=== PATIENT | female | born 1975 | race American Indian/Alaskan Native ===

== ENCOUNTER 2016-09-18 10:27 | Emergency (ER) | payer MEDICARE ==
[2016-09-18] MEDS ORDERED: PROVENTIL IH ONE (11:00)
[2016-09-18] MEDS ORDERED: NORCO 5/325 PO ONE (11:24)
--- NOTE | 2016-09-18 11:31 | Emergency Department Report ---
HPI - General Chief Complaint: Dyspnea/Respdistress Time Seen by Provider: 09/18/16 11:16 - HPI HPI: Room 23 The patient is a 40-year-old female presenting with a chief complaint cough and congestion. Patient states for 4 weeks she has had a cough productive of yellow sputum. Patient admits to wheezing and chest congestion. Patient is to nausea vomiting. Past 4 days. The patient states she "hurts all over" because of her "lupus is flaring up." Patient denies fever, rhinorrhea or sick contacts. Patient now complains of pleurisy. Location: [see above] Duration: 4 days Quality:, Congestion and soreness Severity: Moderate Modifying factors: [see above] Context: [see above] Mode of transportation: [not driving] ED Past Medical Hx - Past Medical History Hx Hypertension: Yes Hx Arthritis: Yes Hx Headaches / Migraines: Yes Hx Psychiatric Treatment: Yes (depression) Hx Asthma: Yes Additional medical history: Sarcodosis, chronic pain management, H. yplori, LUPUS. PNEUMONIA - Surgical History Hx Cholecystectomy: Yes Additional Surgical History: Port placement - Family History Family history: no significant - Social History Smoking Status: Never Smoker Substance Use Type: None - Medications Home Medications: Home Medications Medication Instructions Recorded Confirmed Last Taken Type Lisinopril [Zestril TAB] 20 mg PO QDAY 06/27/15 09/18/16 1 Day Ago History 20 Pravastatin Sodium 40 mg PO QDAY 06/28/15 09/18/16 1 Day Ago History 20 Albuterol Sulfate [Albuterol 0.63% 0.63 mg IH TID PRN #25 unit 10/06/1504/07/16 Rx NEBS] Fluticasone/Salmeterol [Advair 1 puff IH BID #1 blst.w.dev 01/13/16 09/18/16 Rx Diskus 250-50 mcg] Levalbuterol HCl [Xopenex] 0.63 mg IH Q6H PRN #30 vial.neb 01/13/16 09/18/16 Unknown Rx Famotidine [Pepcid] 20 mg PO BID #10 tablet 02/27/16 09/18/16 Unknown Rx ALBUTEROL Inhaler [ProAir HFA 2 puff IH QID PRN #1 inhalation 03/23/16 09/18/16 04/08/16 Rx Inhaler] Prednisone [predniSONE 10 mg 10 mg PO .TAPER #1 tab.ds.pk 03/23/16 09/18/16 Rx (6-Day Pack, 21 Tabs)] Promethazine [Phenergan TAB] 50 mg PO 4XD 04/08/16 09/18/16 Unknown History diphenhydrAMINE [Benadryl CAP] 50 mg PO TID 04/08/16 09/18/16 Unknown History Promethazine [Phenergan] 25 mg [place] Q6HR PRN #5 supp.rect 05/19/16 09/18/16 Unknown Rx predniSONE [Deltasone] 40 mg PO QDAY #14 tab 05/19/16 09/18/16 Unknown Rx ED Review of Systems ROS: Stated complaint: ASTHMA/AUBREE/WHEEZING/CHEST PAIN Other details as noted in HPI Comment: All other systems reviewed and negative Constitutional: denies: fever Eyes: denies: eye pain, eye discharge, vision change ENT: congestion Respiratory: cough, wheezing Cardiovascular: denies: palpitations Endocrine: no symptoms reported Gastrointestinal: nausea, vomiting Genitourinary: denies: urgency, dysuria, discharge Musculoskeletal: myalgia Skin: denies: rash, lesions Neurological: headache Psychiatric: denies: anxiety, depression Hematological/Lymphatic: denies: easy bleeding, easy bruising Physical Exam - Physical Exam Vital Signs: Vital Signs 09/18/16 09/18/16 09/18/16 10:43 11:08 11:23 Temperature 97.7 F Pulse Rate 99 H Pulse Rate [ 90 92 H Bilateral Upper Lobe] Respiratory 24 Rate Respiratory 20 18 Rate [Bilateral Upper Lobe] O2 Sat by Pulse 94 Oximetry Physical Exam: GENERAL: The patient is well-developed well-nourished female lying on stretcher not appearing to be in acute distress. [] HEENT: Normocephalic. Atraumatic. Extraocular motions are intact. NECK: Supple. No meningitic signs are noted. Trachea Midline CHEST/LUNGS: Clear to auscultation. There is no respiratory distress noted. Occasional cough HEART/CARDIOVASCULAR: Regular. There is no tachycardia. There is no gallop rub or murmur. ABDOMEN: Abdomen is soft, nontender. Patient has normal bowel sounds. There is no abdominal distention. SKIN: There is no rash. There is no edema. There is no diaphoresis. NEURO: The patient is awake, alert, and oriented. The patient is cooperative. The patient has normal speech MUSCULOSKELETAL: There is no evidence of acute injury. ED Course Vital Signs 09/18/16 09/18/16 09/18/16 10:43 11:08 11:23 Temperature 97.7 F Pulse Rate 99 H Pulse Rate [ 90 92 H Bilateral Upper Lobe] Respiratory 24 Rate Respiratory 20 18 Rate [Bilateral Upper Lobe] O2 Sat by Pulse 94 Oximetry ED Medical Decision Making - Lab Data Influenza negative - Differential Diagnosis pneumonia, bronchitis, PE, ACS, influenza Critical care attestation.: If time is entered above; I have spent that time in minutes in the direct care of this critically ill patient, excluding procedure time. ED Disposition Clinical Impression: Cough, Lupus, Pleurisy Disposition: DISCHARGED TO HOME OR SELFCARE Is pt being admited?: No Does the pt Need Aspirin: No Condition: Undetermined Referrals: PRIMARY CARE, [Primary Care Provider] - 3-5 Days Forms: AMA Form
[2016-09-18] MEDS ORDERED: ZOFRAN ODT ONE (11:33)
[2016-09-18 13:00] VITALS: BP 121/78
== END 2016-09-18 12:30 | disposition home or self-care (01) ==
LOC: ED 10:27
DX: R09.1 Pleurisy (principal); M32.9 Systemic lupus erythematosus, unspecified; I10 Essential (primary) hypertension; M19.90 Unspecified osteoarthritis, unspecified site; G43.909 Migraine, unspecified, not intractable, without status migrainosus; F32.9 Major depressive disorder, single episode, unspecified; J45.909 Unspecified asthma, uncomplicated; G89.29 Other chronic pain; Z90.49 Acquired absence of other specified parts of digestive tract
CPT/HCPCS: 87400; 94640; 99283; Q0162

== ENCOUNTER 2016-12-10 09:34 | Emergency (ER) | payer MEDICARE ==
[2016-12-10] MEDS ORDERED: PROVENTIL IH ONE (09:44)
[2016-12-10] MEDS ORDERED: ATROVENT IH ONE (09:45)
[2016-12-10 10:14] LABS: Hematocrit 39.6 % (30.3-42.9); Mean Corpuscular HGB Conc 33 % (30-34); Mean Corpuscular Hemoglobin 28 pg (28-32); Mean Corpuscular Volume 84 fl (79-97); Platelet Count 197 K/mm3 (140-440); Red Blood Count 4.71 M/mm3 (3.65-5.03); Red Cell Distribution Width 17.4 % (13.2-15.2); White Blood Count 9.6 K/mm3 (4.5-11.0)
--- NOTE | 2016-12-10 10:27 | XRay Report ---
AP CHEST: HISTORY: Dyspnea Poor inspiration. A left [id number] remains in good position since 11/08/16. AP view of the chest demonstrates a normal mediastinal and cardiac contour with clear lungs and normal bony and soft tissue structures. IMPRESSION: Unremarkable AP chest.
[2016-12-10 10:38] LABS: Anion Gap 19 mmol/L; BUN/Creatinine Ratio 8.75; Blood Urea Nitrogen 7 mg/dL (7-17); Calcium 9.3 mg/dL (8.4-10.2); Carbon Dioxide 22 mmol/L (22-30); Chloride 104.3 mmol/L (98-107); Glucose 100 mg/dL (65-100); Potassium 3.6 mmol/L (3.6-5.0); Sodium 142 mmol/L (137-145)
[2016-12-10 11:02] LABS: Basophils % (Manual) 0 % (0.0-1.8); Blastocytes % (Manual) 0 %
[2016-12-10 11:03] LABS: Anisocytosis 1+; Elliptocytes 1+; Poikilocytosis 1+
[2016-12-10 11:04] LABS: Diff Status Complete; Platelet Estimate Consistent w Auto
[2016-12-10 11:13] VITALS: BP 130/67
[2016-12-10] MEDS ORDERED: DUONEB *Not for PRN Use IH ONE (12:05)
[2016-12-10] MEDS ORDERED: NACL 0.9% 1000 ML 2,000 ML IV ONE (12:05)
[2016-12-10] MEDS ORDERED: MAGNESIUM SULFATE 2GM/50ML 2 GM/50 ML BAG IV ONE (12:05)
--- NOTE | 2016-12-10 12:10 | Emergency Department Report ---
HPI - General Chief Complaint: Dyspnea/Respdistress Time Seen by Provider: 12/10/16 11:35 - HPI HPI: The patient is a 41-year-old female who presents for evaluation of cough and dyspnea, with a history of asthma and COPD. The patient reports 3 days of progressive dyspnea, constant and severe for the past 12 hours, exacerbated with exertion, improved with albuterol rescue inhaler. She states that her cough has been productive of clear sputum. She also reports bilateral aching in quality severe chest pain for the past 2 days. She denies fever, trauma to the chest, syncope, Hemoptysis, unilateral leg swelling, oral contraceptive use , recent immobilization, history of DVT or PE, recent cancer. ED Past Medical Hx - Past Medical History Hx Hypertension: Yes Hx Renal Disease: No Hx Arthritis: Yes Hx Headaches / Migraines: Yes Hx Psychiatric Treatment: Yes (depression) Hx Asthma: Yes Hx HIV: No Additional medical history: Sarcodosis, chronic pain management, H. yplori, LUPUS. PNEUMONIA - Surgical History Past Surgical History?: Yes Hx Cholecystectomy: Yes Additional Surgical History: Port placement - Social History Smoking Status: Never Smoker Substance Use Type: None - Medications Home Medications: Home Medications Medication Instructions Recorded Confirmed Last Taken Type Pravastatin Sodium 40 mg PO QDAY 06/28/15 12/10/16 12/07/16 History Albuterol Sulfate [Albuterol 0.63% 0.63 mg IH TID PRN #25 unit 10/06/1512/07/16 Rx NEBS] Fluticasone/Salmeterol [Advair 1 puff IH BID #1 blst.w.dev 01/13/16 12/10/16 Rx Diskus 250-50 mcg] Famotidine [Pepcid] 20 mg PO BID #10 tablet 02/27/16 12/10/16 12/07/16 Rx Promethazine [Phenergan TAB] 50 mg PO TID 04/08/16 12/10/16 12/07/16 History diphenhydrAMINE [Benadryl CAP] 50 mg PO TID 04/08/16 12/10/16 12/07/16 History Levalbuterol HCl [Xopenex] 0.63 mg IH Q6H PRN #30 vial.neb 06/12/10/16 Rx oxyCODONE /ACETAMINOPHEN [Percocet 1 tab PO Q6HR PRN #10 tablet 11/09/1612/07/16 Rx 5/325] ALBUTEROL Inhaler [ProAir HFA 2 puff IH QID PRN #1 inhalation 12/10/16 Unknown Rx Inhaler] ALPRAZolam [Xanax TAB] 2 mg PO BID 12/10/16 12/10/16 12/07/16 History Zolpidem [Ambien] 10 mg PO QHS 12/10/16 12/10/16 12/07/16 History predniSONE [Deltasone] 20 mg PO QDAY #5 tablet 12/10/16 Unknown Rx ED Review of Systems ROS: Stated complaint: AUBREE Other details as noted in HPI Constitutional: denies: fever ENT: denies: throat or neck pain Respiratory: reports cough, shortness of breath Cardiovascular: denies: chest pain Endocrine: denies unexplained weight loss or gain Gastrointestinal: denies: abdominal pain, nausea Genitourinary: denies: dysuria Musculoskeletal: denies: leg swelling Skin: denies: rash Neurological: denies: headache Hematological/Lymphatic: denies: easy bleeding or easy bruising Psych: denies sadness or hopelessness Physical Exam - Physical Exam Vital Signs: Vital Signs 12/10/16 12/10/16 12/10/16 09:31 09:41 09:51 Temperature Pulse Rate 114 H 115 H Pulse Rate [ 115 H Bilateral Upper Lobe] Respiratory 54 H 36 H Rate Respiratory 20 Rate [Bilateral Upper Lobe] Blood Pressure 152/93 141/95 Blood Pressure [Left] O2 Sat by Pulse 100 98 98 Oximetry 12/10/16 12/10/16 12/10/16 09:54 10:00 10:01 Temperature 98.6 F Pulse Rate 121 H 118 H Pulse Rate [ Bilateral Upper Lobe] Respiratory 57 H 57 H 14 Rate Respiratory Rate [Bilateral Upper Lobe] Blood Pressure 141/95 Blood Pressure 152/93 [Left] O2 Sat by Pulse 96 100 98 Oximetry 12/10/16 12/10/16 12/10/16 10:05 10:11 10:21 Temperature Pulse Rate 115 H 118 H Pulse Rate [ 118 H Bilateral Upper Lobe] Respiratory 16 17 Rate Respiratory 20 Rate [Bilateral Upper Lobe] Blood Pressure 124/64 132/77 Blood Pressure [Left] O2 Sat by Pulse 99 100 Oximetry 12/10/16 12/10/16 12/10/16 10:30 10:41 10:51 Temperature Pulse Rate 113 H 114 H Pulse Rate [ Bilateral Upper Lobe] Respiratory 22 13 Rate Respiratory Rate [Bilateral Upper Lobe] Blood Pressure 132/77 120/69 128/68 Blood Pressure [Left] O2 Sat by Pulse 89 100 100 Oximetry 12/10/16 11:00 Temperature Pulse Rate 117 H Pulse Rate [ Bilateral Upper Lobe] Respiratory 33 H Rate Respiratory Rate [Bilateral Upper Lobe] Blood Pressure 130/67 Blood Pressure [Left] O2 Sat by Pulse 96 Oximetry Physical Exam: General: well-nourished, well-developed, no acute distress Head: Normocephalic, atraumatic Eyes: normal sclera ENT: Mucous membranes are pink and moist Neck: trachea midline, neck supple, No neck stiffness, no cervical adenopathy Respiratory: Diminished breath sounds and wheezing present throughout lung abdi bilaterally Cardio: S1 and S2 present, no murmurs, rubs, gallops, capillary refill is brisk Abdomen: Normoactive bowel sounds, soft abdomen, no rigidity, no guarding or rebound tenderness Chest WALL/Back: No tenderness to palpation of the chest wall, no CVA tenderness with percussion Musc: No pitting edema Skin: No rash Neuro: no facial drooping, normal speech Psych: Normal affect ED Course Vital Signs 12/10/16 12/10/16 12/10/16 09:31 09:41 09:51 Temperature Pulse Rate 114 H 115 H Pulse Rate [ 115 H Bilateral Upper Lobe] Respiratory 54 H 36 H Rate Respiratory 20 Rate [Bilateral Upper Lobe] Blood Pressure 152/93 141/95 Blood Pressure [Left] O2 Sat by Pulse 100 98 98 Oximetry 12/10/16 12/10/16 12/10/16 09:54 10:00 10:01 Temperature 98.6 F Pulse Rate 121 H 118 H Pulse Rate [ Bilateral Upper Lobe] Respiratory 57 H 57 H 14 Rate Respiratory Rate [Bilateral Upper Lobe] Blood Pressure 141/95 Blood Pressure 152/93 [Left] O2 Sat by Pulse 96 100 98 Oximetry 12/10/16 12/10/16 12/10/16 10:05 10:11 10:21 Temperature Pulse Rate 115 H 118 H Pulse Rate [ 118 H Bilateral Upper Lobe] Respiratory 16 17 Rate Respiratory 20 Rate [Bilateral Upper Lobe] Blood Pressure 124/64 132/77 Blood Pressure [Left] O2 Sat by Pulse 99 100 Oximetry 12/10/16 12/10/16 12/10/16 10:30 10:41 10:51 Temperature Pulse Rate 113 H 114 H Pulse Rate [ Bilateral Upper Lobe] Respiratory 22 13 Rate Respiratory Rate [Bilateral Upper Lobe] Blood Pressure 132/77 120/69 128/68 Blood Pressure [Left] O2 Sat by Pulse 89 100 100 Oximetry 12/10/16 11:00 Temperature Pulse Rate 117 H Pulse Rate [ Bilateral Upper Lobe] Respiratory 33 H Rate Respiratory Rate [Bilateral Upper Lobe] Blood Pressure 130/67 Blood Pressure [Left] O2 Sat by Pulse 96 Oximetry ED Medical Decision Making - Lab Data Result diagrams: 12/10/16 09:57 12/10/16 09:57 - Medical Decision Making The patient was seen and examined by myself. The patient is placed on a dial mounter and continuous pulse ox. On initial evaluation, the patient was found to be in no distress. Evaluation orders were placed. The patient is given duoneb and xopenex breathing treatments here for txt of COPD. The patient received IV Solu-Medrol in route via EMS. The patient is offered Tylenol for her pain and she refuses, stating that only Dilaudid to use her pain. She states that she has received Dilaudid every time she goes to the emergency department. She is informed that there is no identifiable clinical indication for providing the patient with Dilaudid. The patient demands Dilaudid repeatedly and I continue to inform her that she would not receive Dilaudid. Chest x-ray negative for focal consolidation, pleural effusions, pulmonary congestion, pneumothorax, or other acute cardio pulmonary disease process. Lab results are grossly not concerning including normal BNP and troponin level. On reevaluation the patient's found to remain with significant wheezing and diminished breath sounds, and tachypnea. She agrees to admission to the hospital. The on-call hospitalist service was contacted. They agreed to admit the patient for further treatment and close monitoring. The ED admit order was placed. Critical care attestation.: If time is entered above; I have spent that time in minutes in the direct care of this critically ill patient, excluding procedure time. ED Disposition Clinical Impression: Asthma with status asthmaticus in adult, Dehydration Chest pain Qualifiers: Chest pain type: unspecified Qualified Code(s): R07.9 - Chest pain, unspecified Disposition: OP ADMIT IP TO THIS HOSP Is pt being admited?: Yes Does the pt Need Aspirin: Yes Condition: Serious Instructions: Chest Pain (ED), Asthma (ED) Prescriptions: ALBUTEROL Inhaler [ProAir HFA Inhaler] 2 puff IH QID PRN #1 inhalation PRN Reason: Shortness Of Breath predniSONE [Deltasone] 20 mg PO QDAY #5 tablet Referrals: PRIMARY CARE, [Primary Care Provider] - 3-5 Days Time of Disposition: 12:10
--- NOTE | 2016-12-10 12:23 | Admit Criteria Form ---
Admission Criteria Documentation: ASTHMA Clinical Indications for Admission to Inpatient Care (Place 'X' for any and all applicable criteria): Admission is indicated for ANY ONE of the following (1)(2)(3)(4)(5): [ ]I. Absent or markedly diminished breath sounds (silent chest) [ ]II. Oxygen saturation < 92% [ ]III. PaCO2 = / > 42 mm Hg (5.6 kPa) [ ]IV. Peak expiratory flow rate < 40% of predicted or personal best after treatment. [ ]V. Peak expiratory flow rate < 33% of predicted or personal before after treatment [ ]. Change in mental status [ ]VII. Ventilatory support required [ ]VIII. PaO2 < 60 mm Hg (8.0 kPa) [ ]IX. Cyanosis [ ]X. Cardiac dysrhythmia (e.g., bradycardia) [ ]XI. Hemodynamic instability [ ]XII. Radiographic evidence of complication requiring inpatient treatment (e.g., pneumonia, pneumothorax) [X]XIII. Inpatient admission required rather than observation care (also use Asthma: Observation Care guideline as appropriate) because of ANY ONE of the following: [X]a) Respiratory finding that is severe or persistent (eg, dyspnea, tachypnea, accessory muscle use) [ ]b) Airflow measurements less than 60% of predicted or personal best that persist (e.g., over 24 hours) or worsen despite treatments [ ]c) Supplemental oxygen or respiratory treatments for over 24 hours that are performable only in acute inpatient setting [ ]d) Other condition, treatment or monitoring requiring inpatient admission. Extended stay beyond goal length of stay may be needed for (26)(27)(28): [ ]a) Severe respiratory failure (23) (29) (30) [ ]b) Secondary causes and complications (25) [ ]c) Status asthmaticus [ ]d) Chronic obstructive asthma [ ]e) Older patients (29) [ ]f) Slow resolution [ ]g) Clinically significant exacerbation of comorbidities (eg, leo. heart failure, atrial fibrillation) The original [employer] content created by [employer] has been revised. The portions of the content which have been revised are identified through the use of italic text or in bold, and [employer] has neither reviewed nor approved the modified material. All other unmodified content is copyright [employer] Please see references footnoted in the original [facility] edition 2016
[2016-12-10] MEDS ORDERED: XOPENEX IH ONE (12:34)
[2016-12-10] MEDS ORDERED: TYLENOL PO ONE (13:13)
--- NOTE | 2016-12-10 15:42 | History and Physical Report ---
History of Present Illness Chief complaint: Im wheezing History of present illness: 41 YO Female with HTN, Obesity, Sarcoidosis, SLE, Chronic Pain, Drug Seeeking Behavior, Depression, Migraine [place], Asthma presents to ED for evaluation. Pt states that she hurts all over, and that her sarcoid in acting up. Pt seen and evaluated in ED, and pt found to be in no acute distress. Upon interview, pt changes her symptoms, onset of symptoms, duration of symtoms. Pt gives confusing history. Pt request dilaudid for pain. Pt complains of pain out of proportion to exam and interview. Pt lung exam is normal. Pt not in respiratory distress. Pt denies prolonged travel/immobility, leg swelling, calf pain, trauma , individual/family history of DVT/PE, productive cough, hemoptysis, or recent ill contacts. Past History Past Medical History: other (Obesity, Sarcoid, SLE, Sarcoid, Chronic Pain, Drug Seeking Behavior) Past Surgical History: Other (Port placement to Left chest) Social history: single. denies: smoking, alcohol abuse, prescription drug abuse Family history: diabetes, hypertension Medications and Allergies Allergies Allergy/AdvReac Type Severity Reaction Status Date / Time aspirin Allergy Rash Verified 08/23/15 09:22 cephalexin monohydrate Allergy Rash Verified 08/23/15 09:22 [From Keflex] dexamethasone [From Decadron] Allergy Rash Verified 01/13/16 03:24 dexamethasone sod phosphate Allergy Rash Verified 01/13/16 03:24 [From Decadron] droperidol [From Inapsine] Allergy Rash Verified 09/18/16 11:03 ipratropium bromide Allergy Rash Verified 09/18/16 11:03 [From Atrovent] ketorolac tromethamine Allergy Rash Verified 08/23/15 09:22 [From Toradol] magnesium Allergy Hives Verified 10/06/15 12:09 meperidine HCl [From Demerol] Allergy Rash Verified 08/23/15 09:22 morphine Allergy Rash Verified 08/23/15 09:22 naproxen [From Naprosyn] Allergy Swelling Verified 08/23/15 09:22 nut - unspecified Allergy Swelling Verified 08/23/15 09:22 ondansetron HCl [From Zofran] Allergy Rash Verified 08/23/15 09:22 Penicillins Allergy Rash Verified 08/23/15 09:22 prochlorperazine edisylate Allergy Rash Verified 08/23/15 09:22 [From Compazine] prochlorperazine maleate Allergy Rash Verified 08/23/15 09:22 [From Compazine] sulfamethoxazole Allergy Rash Verified 08/23/15 09:22 [From Bactrim] trimethoprim [From Bactrim] Allergy Rash Verified 08/23/15 09:22 Home Medications Medication Instructions Recorded Confirmed Last Taken Type Pravastatin Sodium 40 mg PO QDAY 06/28/15 12/10/16 12/07/16 History Albuterol Sulfate [Albuterol 0.63% 0.63 mg IH TID PRN #25 unit 10/06/1512/07/16 Rx NEBS] Fluticasone/Salmeterol [Advair 1 puff IH BID #1 blst.w.dev 01/13/16 12/10/16 Rx Diskus 250-50 mcg] Famotidine [Pepcid] 20 mg PO BID #10 tablet 02/27/16 12/10/16 12/07/16 Rx Promethazine [Phenergan TAB] 50 mg PO TID 04/08/16 12/10/16 12/07/16 History diphenhydrAMINE [Benadryl CAP] 50 mg PO TID 04/08/16 12/10/16 12/07/16 History Levalbuterol HCl [Xopenex] 0.63 mg IH Q6H PRN #30 vial.neb 11/09/16 12/10/16 Rx oxyCODONE /ACETAMINOPHEN [Percocet 1 tab PO Q6HR PRN #10 tablet 11/09/1612/07/16 Rx 5/325] ALBUTEROL Inhaler [ProAir HFA 2 puff IH QID PRN #1 inhalation 12/10/16 Unknown Rx Inhaler] ALPRAZolam [Xanax TAB] 2 mg PO BID 12/10/16 12/10/16 12/07/16 History Zolpidem [Ambien] 10 mg PO QHS 12/10/16 12/10/16 12/07/16 History predniSONE [Deltasone] 20 mg PO QDAY #5 tablet 07/19/17 Unknown Rx Review of Systems All systems: negative Constitutional: other (wheezing), no weight loss Ears, nose, mouth and throat: no ear pain Breasts: no swelling Cardiovascular: no chest pain Respiratory: no cough, no shortness of breath Gastrointestinal: no abdominal pain Genitourinary Female: no dyspareunia Menstruation: no ammenorrhea Rectal: no pain Musculoskeletal: no neck stiffness Integumentary: no rash Neurological: no head injury Psychiatric: no anxiety, no memory loss Hematologic/Lymphatic: no easy bruising Exam - Constitutional Vitals: Temp Pulse Resp BP Pulse Ox 98.6 F 112 H 20 130/67 97 12/10/16 09:54 12/10/16 12:46 12/10/16 12:46 12/10/16 11:11 12/10/16 11:11 General appearance: Present: obese - EENT Eyes: Present: PERRL ENT: hearing intact, clear oral mucosa - Neck Neck: Present: supple, normal ROM - Respiratory Respiratory effort: normal Respiratory: bilateral: CTA - Cardiovascular Heart Sounds: Present: S1 & S2. Absent: rub, click - Extremities Extremities: pulses symmetrical, No edema Peripheral Pulses: within normal limits - Abdominal General gastrointestinal: Present: soft, non-tender, non-distended, normal bowel sounds Female genitourinary: Present: normal - Integumentary Integumentary: Present: clear, warm, dry - Musculoskeletal Musculoskeletal: gait normal, strength equal bilaterally - Psychiatric Psychiatric: appropriate mood/affect, intact judgment & insight - Neurologic Neurologic: CNII-XII intact, moves all extremities Results - Labs CBC & Chem 7: 12/10/16 09:57 12/10/16 09:57 Labs: Abnormal lab results 12/10/16 Range/Units 09:57 RDW 17.4 H (13.2-15.2) % Assessment and Plan - Patient Problems (1) Asthma Current Visit: Yes Status: Acute Qualifiers: Asthma severity: A Asthma complication type: uncomplicated Plan to address problem: No exacerbation at this time, No supplemental oxygen provided, Pt sao2 of 96% on RA without wheezing, or increased work of breathing, Normal lung exam. (2) SLE (systemic lupus erythematosus) Current Visit: Yes Status: Chronic Qualifiers: Systemic lupus erythematosus type: other Systemic lupus erythematosus organ involvement: S Plan to address problem: Stable, No exacerbation at this time. (3) Sarcoid Current Visit: Yes Status: Chronic Plan to address problem: continue current therapy, outpatient rheumatology f/u. (4) Drug-seeking behavior Current Visit: Yes Status: Acute Plan to address problem: Pt counseled, Pt complains of pain out of proportion to exam and interview. (5) DVT prophylaxis Current Visit: No Status: Acute
== END 2016-12-10 15:43 | disposition admitted as inpatient to this hospital (09) ==
LOC: ED 09:34
DX: J45.902 Unspecified asthma with status asthmaticus (principal); E86.0 Dehydration; R07.9 Chest pain, unspecified; I10 Essential (primary) hypertension; M19.90 Unspecified osteoarthritis, unspecified site; F32.9 Major depressive disorder, single episode, unspecified; G43.909 Migraine, unspecified, not intractable, without status migrainosus; J45.909 Unspecified asthma, uncomplicated
CPT/HCPCS: 36415; 71010; 80048; 83880; 84484; 85007; 85025; 93005; 93010; 94640; 99285

== ENCOUNTER 2017-01-11 21:49 | Emergency (ER) | payer MEDICARE ==
[2017-01-11] MEDS ORDERED: PROVENTIL IH ONE ×2 (21:54)
[2017-01-11 21:58] VITALS: BP 112/87
[2017-01-11 22:53] LABS: Creatine Kinase MB 1.8 ng/mL (0.0-4.0)
[2017-01-11 22:54] LABS: Anion Gap 18 mmol/L; Blood Urea Nitrogen 10 mg/dL (7-17); Calcium 8.5 mg/dL (8.4-10.2); Carbon Dioxide 21 mmol/L (22-30); Chloride 107.7 mmol/L (98-107); Creatine Kinase 143 units/L (30-135); Glucose 100 mg/dL (65-100); Potassium 4.2 mmol/L (3.6-5.0); Sodium 142 mmol/L (137-145)
[2017-01-11] MEDS ORDERED: SUBLIMAZE IV ONE (23:00)
[2017-01-11] MEDS ORDERED: BENADRYL IV ONE (23:01)
[2017-01-11] MEDS ORDERED: REGLAN IV ONE (23:01)
[2017-01-11 23:09] LABS: Basophils % (Auto) 0.5 % (0.0-1.8); Eosinophils % (Auto) 0.9 % (0.0-4.3); Hematocrit 38.1 % (30.3-42.9); Hemoglobin 12.3 gm/dl (10.1-14.3); Mean Corpuscular HGB Conc 32 % (30-34); Mean Corpuscular Hemoglobin 28 pg (28-32); Mean Corpuscular Volume 86 fl (79-97); Platelet Count 203 K/mm3 (140-440); Red Blood Count 4.46 M/mm3 (3.65-5.03); Red Cell Distribution Width 17.3 % (13.2-15.2); White Blood Count 9.2 K/mm3 (4.5-11.0)
--- NOTE | 2017-01-11 23:09 | Emergency Department Report ---
HPI - General Chief Complaint: Dyspnea/Respdistress Time Seen by Provider: 01/11/17 21:53 - HPI HPI: Room 21 The patient is a 41-year-old female presenting with a chief complaint of shortness of breath. The patient states there are people in her home smokes cigarettes and triggers her asthma. The patient states for the past issues suffer from shortness of breath associated with her asthma. Patient states she went to see her primary physician during the onset last week when she [place] [facility] where she was diagnosed with asthma exacerbation and treated with medication. Patient was cough socially with shortness of breath and hurting "all over." Patient admits to frequent nausea and vomiting for several days which is not stopped with rectal Phenergan. Patient is well-known to this emergency department Location: Lungs, see above Duration: [see above] Quality: Shortness of breath Severity:. Moderate Modifying factors: [see above] Context: [see above] Mode of transportation: [not driving] ED Past Medical Hx - Past Medical History Previous Medical History?: Yes Hx Hypertension: Yes Hx Arthritis: Yes Hx Headaches / Migraines: Yes Hx Psychiatric Treatment: Yes (depression) Hx Asthma: Yes Additional medical history: Sarcoidosis, chronic pain management, H. yplori, LUPUS. PNEUMONIA - Surgical History Past Surgical History?: Yes Hx Cholecystectomy: Yes Additional Surgical History: Port placement - Family History Family history: no significant - Social History Smoking Status: Never Smoker Substance Use Type: None (denies illicit drug use) - Medications Home Medications: Home Medications Medication Instructions Recorded Confirmed Last Taken Type Pravastatin Sodium 40 mg PO QDAY 06/28/15 01/11/17 12/07/16 History Albuterol Sulfate [Albuterol 0.63% 0.63 mg IH TID PRN #25 unit 10/06/1512/07/16 Rx NEBS] Fluticasone/Salmeterol [Advair 1 puff IH BID #1 blst.w.dev 01/13/16 01/11/17 Rx Diskus 250-50 mcg] Famotidine [Pepcid] 20 mg PO BID #10 tablet 02/27/16 01/11/17 12/07/16 Rx Promethazine [Phenergan TAB] 50 mg PO TID 04/08/16 01/11/17 12/07/16 History diphenhydrAMINE [Benadryl CAP] 50 mg PO TID 04/08/16 01/11/17 12/07/16 History Levalbuterol HCl [Xopenex] 0.63 mg IH Q6H PRN #30 vial.neb 11/09/16 01/11/17 Rx oxyCODONE /ACETAMINOPHEN [Percocet 1 tab PO Q6HR PRN #10 tablet 11/09/1612/07/16 Rx 5/325] ALBUTEROL Inhaler [ProAir HFA 2 puff IH QID PRN #1 inhalation 12/10/16 01/11/17 Unknown Rx Inhaler] ALPRAZolam [Xanax TAB] 2 mg PO BID 12/10/16 01/11/17 12/07/16 History Zolpidem [Ambien] 10 mg PO QHS 12/10/16 01/11/17 12/07/16 History predniSONE [Deltasone] 20 mg PO QDAY #5 tablet 12/10/16 01/11/17 Unknown Rx ED Review of Systems ROS: Stated complaint: AUBREE Other details as noted in HPI Comment: All other systems reviewed and negative Constitutional: denies: chills, fever Eyes: denies: eye pain, eye discharge, vision change ENT: denies: ear pain, throat pain Respiratory: cough, shortness of breath, wheezing Cardiovascular: denies: palpitations Endocrine: no symptoms reported Gastrointestinal: nausea, vomiting Genitourinary: denies: urgency, dysuria, discharge Musculoskeletal: denies: back pain, joint swelling, arthralgia Skin: denies: rash, lesions Neurological: denies: headache, weakness, paresthesias Psychiatric: denies: anxiety, depression Hematological/Lymphatic: denies: easy bleeding, easy bruising Physical Exam - Physical Exam Vital Signs: Vital Signs 01/11/17 01/11/17 01/11/17 21:51 21:58 22:00 Temperature Pulse Rate 94 H Pulse Rate [ 99 H Anterior Bilateral Throughout] Respiratory 18 18 Rate Respiratory 24 Rate [Anterior Bilateral Throughout] Blood Pressure 112/87 O2 Sat by Pulse 100 100 Oximetry 01/11/17 22:03 Temperature 98.2 F Pulse Rate Pulse Rate [ Anterior Bilateral Throughout] Respiratory Rate Respiratory Rate [Anterior Bilateral Throughout] Blood Pressure O2 Sat by Pulse Oximetry Physical Exam: GENERAL: The patient is well-developed well-nourished female sitting on stretcher with audible wheezing. [] HEENT: Normocephalic. Atraumatic. Extraocular motions are intact. Patient has moist mucous membranes. NECK: Supple. Trachea midline CHEST/LUNGS: Diffuse wheezing. HEART/CARDIOVASCULAR: Regular. There is no tachycardia. There is no gallop rub or murmur. ABDOMEN: Abdomen is soft, nontender. Patient has normal bowel sounds. There is no abdominal distention. SKIN: There is no rash. There is no edema. There is no diaphoresis. NEURO: The patient is awake, alert, and oriented. The patient is cooperative. The patient has normal speech MUSCULOSKELETAL: There is no evidence of acute injury. ED Course Vital Signs 01/11/17 01/11/17 01/11/17 21:51 21:58 22:00 Temperature Pulse Rate 94 H Pulse Rate [ 99 H Anterior Bilateral Throughout] Respiratory 18 18 Rate Respiratory 24 Rate [Anterior Bilateral Throughout] Blood Pressure 112/87 O2 Sat by Pulse 100 100 Oximetry 01/11/17 22:03 Temperature 98.2 F Pulse Rate Pulse Rate [ Anterior Bilateral Throughout] Respiratory Rate Respiratory Rate [Anterior Bilateral Throughout] Blood Pressure O2 Sat by Pulse Oximetry ED Medical Decision Making - Lab Data Result diagrams: 01/11/17 22:00 01/11/17 22:00 Laboratory Tests 01/11/17 01/11/17 22:00 22:00 WBC 9.2 RBC 4.46 Hgb 12.3 Hct 38.1 MCV 86 MCH 28 MCHC 32 RDW 17.3 H Plt Count 203 Lymph % (Auto) 32.2 [place] % (Auto) 5.5 Eos % (Auto) 0.9 Baso % (Auto) 0.5 Lymph # 3.0 [place] # 0.5 Eos # 0.1 Baso # 0.0 Seg Neutrophils % 60.9 Seg Neutrophils # 5.6 Sodium 142 Potassium 4.2 Chloride 107.7 H Carbon Dioxide 21 L Anion Gap 18 BUN 10 Creatinine 0.8 Estimated GFR > 60 BUN/Creatinine Ratio 12.50 Glucose 100 Calcium 8.5 Total Creatine Kinase 143 H CK-MB (CK-2) 1.8 CK-MB (CK-2) Rel Index 1.2 Troponin T < 0.010 NT-Pro-B Natriuret Pep < 5 - EKG Data -: EKG Interpreted by Me EKG shows normal: sinus rhythm Rate: normal - EKG Data When compared to previous EKG there are: no significant change Interpretation: unchanged when compared t (05/19/2016), nonspecific ST-T wave anselmo - Radiology Data Radiology results: image reviewed (chest x-ray) interpreted by me: Chest [id number] infiltrate right lower lobe - Differential Diagnosis acute asthma exacerbation, pneumonia, malingering Critical care attestation.: If time is entered above; I have spent that time in minutes in the direct care of this critically ill patient, excluding procedure time. ED Disposition Clinical Impression: Asthma exacerbation, Pneumonia Disposition: [id number] LEFT AGAINST MED ADVICE Is pt being admited?: No Does the pt Need Aspirin: No Condition: Undetermined Instructions: Bacterial Pneumonia (ED) Referrals: PRIMARY CARE, [Primary Care Provider] - 3-5 Days Forms: AMA Form Time of Disposition: 00:16 (patient leaving AMA)
--- NOTE | 2017-01-11 23:38 | XRay Report ---
FINAL REPORT PROCEDURE: XR CHEST 1V AP TECHNIQUE: Chest radiograph anteroposterior view. CPT 01433 HISTORY: Shortness of breath. COMPARISON: No prior studies are available for comparison. FINDINGS: Heart: Normal. Mediastinum/Vessels: Normal. Lungs/Pleural space: Mildly decreased lung volumes with slight worsening of perihilar and bibasilar opacities, right slightly greater than left. Minimal blunting of the costophrenic angles. Bony thorax: No acute osseous abnormality. Life support devices: Central venous catheter tip in the SVC. IMPRESSION: Decreased lung volumes. Slight worsening of right slightly greater than left perihilar and bibasilar opacities. This could be related in part to bronchovascular crowding/atelectasis, also consider mild pneumonitis or congestive heart failure. Cannot exclude trace bilateral pleural effusions. Consider PA and lateral chest radiograph to begin further characterization if there is continued clinical concern.
[2017-01-12] MEDS ORDERED: FLUSH HEPARIN IV ONE (00:07)
== END 2017-01-12 01:24 | disposition left against medical advice (07) ==
LOC: ED 21:49
DX: J45.901 Unspecified asthma with (acute) exacerbation (principal); J18.9 Pneumonia, unspecified organism; I10 Essential (primary) hypertension; M19.90 Unspecified osteoarthritis, unspecified site; G43.909 Migraine, unspecified, not intractable, without status migrainosus; F32.9 Major depressive disorder, single episode, unspecified; G89.29 Other chronic pain; Z90.49 Acquired absence of other specified parts of digestive tract
CPT/HCPCS: 36415; 71010; 80048; 82550; 82553; 83880; 84484; 85025; 87040; 93005; 93010; 96374; 96375; 99284; J1200; J1642; J2765; J3010